=== PATIENT | female | born 2000 | race Caucasian/White ===

== ENCOUNTER 2025-05-31 11:03 | Outpatient (REF) | payer MEDICAID, SELFPAY ==
--- OUTSIDE RECORDS SUMMARY | 2025-05-31 09:00 | XMS_ITS | Encounter Summary ---
Author Organization [employer] [facility] Address [address] [place] [address] [address] [place] [address] Care Team Providers Care Wooling Machine Operator Name Role Phone Chika Villegas Primary Care Provider [phone] Reason for Referral * Consultation (Routine) - Authorized Specialty Diagnoses / Procedures Referred By Brijesh christy Referred To Contact Nutrition Diagnoses Underweight (BMI < 18.5) Chika Villegas FNP [address] [place] [address] Phone: tel: fax: Referral ID Status Reason Start Date Expiration Date Visits Requested Visits Authorized [id number] Authorized Specialty Services Required 05/31/2025 05/31/2026 1 1 * Consultation (Routine) - Closed Specialty Diagnoses / Procedures Referred By Brijesh christy Referred To Contact Optometry Diagnoses Blurry vision Chika Villegas FNP [address] [place] [address] Phone: tel: fax: Referral ID Status Reason Start Date Expiration Date V isits Requested Visits Authorized [id number] Closed Specialty Services Required 05/31/2025 05/31/2026 1 1 Encounter Details Date Type Department Care Team (Late st Contact Info) Description 05/31/2025 9:00 AM EDT Office Visit [facility] [address] [place] [address] Chika Villegas FNP [address] [place] [address] Well adult health check (Primary Dx); Underweight (BMI < 18.5); Blurry vision; Anxiety and depression Social History Tobacco Use Types Packs/Day Years Used Date Smoking Tobacco: Never Passive Smoke Exposure: Never Smokeless Tobacco: Never Tobacco Cessation:Counseling Given: Not Answered Depression Answer Date Recorded Patient Health Questionnaire-9 Score 4 05/31/2025 Patient Health Questionnaire-9 Score 4 05/31/2025 Last PHQ-9: Questionnaire Data Not on file 0 05/31/2025 Housing Stability Answer Date Recorded What is your housing situation today? I have cony germain 05/31/[address] you li ve. Do you have problems with any of the following? None of the above 05/31/2025 Food Insecurity Answer Date Recorded Within the past 12 months, y ou worried that your food would run out before you got money to buy more: Never True 05/31/2025 Within the past 12 months,th e food you bought just didn't last and you didn't have enough money to get more: Never True Transportation Answer Date Recorded In the past 12 months, has l ack of transportation kept you from medical appts, meetings, work or from getting things needed for daily living? No 05/31/2025 Utilities Answer Date Recorded In the past 12 months, has t he electric, gas, oil or water company threatened to shut off services in your home? No 05/31/2025 Depression Answer Date Recorded Patient Health Questionnaire-2 Score 0 05/31/2025 Internet Access Answer Date Recorded Internet Access Q1 Yes 05/31/2025 Internet Access Q2 Not on file 05/31/2025 Comments Unknown Sex and Gender Information Value Date Recorded Sex Assigned at Female 07/14/2022 10:16 AM EDT Legal Sex Female 10:16 AM EDT Gender Identity Female 07/14/2022 10:16 AM EDT Sexual Orientation Don't know 07/14/2022 10 :16 AM EDT documented as of this encounter Last Filed Vital Signs Vital Sign Reading Time Taken Comments Blood Pressure 128/80 05/31/2025 9:44 AM EDT Pulse 114 05/31/2025 9:44 AM EDT Temperature 36.9 C (98.4 F) 05/31/2025 9:44 AM EDT Respiratory Rate 18 05/31/2025 9:44 AM EDT Oxygen Saturation 98% 05/31/2025 9:44 AM EDT Inhaled Oxygen Concentration - - Weight 35.8 kg (79 lb) 05/31/2025 9:44 AM EDT Height 149.4 cm (4' 10.81 ) 05/31/2025 9:44 AM E DT Body Mass Index 16.06 05/31/2025 9:44 AM EDT documented in this encounter Functional Status * Over the past 2 weeks, how often have you been bothered by any of the following problems? Question Answer Date of Assessment Author Patient Health Questionnaire-2 Score 0 05/31/2025 10:29 AM EDT Ayde Mason [place] * Little interest or pleasure in doing things Answer Date of Assessment Author Not at all 05/31/2025 10:29 AM EDT Ayde Carroll [place], [place] * Feeling down, depressed, or hopeless Answer Date of Assessment Author Not at all 05/31/2025 10:29 AM EDT Ayde Carroll [place], [place] * Trouble falling or staying asleep, or sleeping too much Answer Date of Assessment Author Several days 05/31/2025 10:29 AM EDT Ayde Carroll [place], [place] * Feeling tired or having little energy Answer Date of Assessment Author Several days 05/31/2025 10:29 AM EDT Ayde Carroll [place], [place] * Poor appetite or overeating Answer Date of Assessment Author Several days 05/31/2025 10:29 AM EDT Ayde Carroll [place], [place] * Feeling bad about yourself - or that you are a failure or have let yourself or your family down Answer Date of Assessment Author Not at all 05/31/2025 10:29 AM EDT Ayde Carroll [place], [place] * Trouble concentrating on things, such as reading the newspaper or watching television Answer Date of Assessment Author Several days 05/31/2025 10:29 AM EDT Ayde Carroll [place], [place] * Moving or speaking so slowly that other people could have noticed? Or the opposite - being so fidgety or restless that you have been moving around a lot more than usual. Answer Date of Assessment Author Not at all 05/31/2025 10:29 AM EDT Ayde Carroll [place], [place] * Thoughts that you would be better off or hurting yourself in some way Answer Date of Assessment Author Not at all 05/31/2025 10:29 AM ELIFT Ayde Carroll [place], [place] * Patient Health Questionnaire-9 Score Answer Date of Assessment Author 4 05/31/2025 10:29 AM EDT Ayde Carroll [place], [place] * How difficult have these problems made it for you to do your work, take care of things at home, or get along with other people? Answer Date of Assessment Author Not difficult at all 05/31/2025 10:29 AM EDT Ayde Alvarenga [place] * Over the last 2 weeks, how often have you been bothered by any of the following problems? Question Answer Date of Assessment Author Feeling nervous, anxious, or on edge 1 05/31/2025 10:58 AM EDT Zack Sampson parul, CERTIFIED MASTER SAFE TECHNICIAN Not being able to stop or control worrying 0 05/31/2025 10:58 AM EDT Zack Sampson parul, CERTIFIED MASTER SAFE TECHNICIAN Worrying too much about different things 0 05/31/2025 10:58 AM EDT Zack Sampson parul, CERTIFIED MASTER SAFE TECHNICIAN Trouble relaxing 1 05/31/2025 10:58 AM EDT Huong Dixon, CERTIFIED MASTER SAFE TECHNICIAN Being so restless that it is hard to sit still 1 05/31/2025 10:58 AM EDT Zack Sampson parul, CERTIFIED MASTER SAFE TECHNICIAN Becoming easily annoyed or irritable 0 05/31/2025 10:58 AM EDT Germane Sampson parul, CERTIFIED MASTER SAFE TECHNICIAN Feeling afraid as if something awful might happen 1 05/31/2025 10:58 AM EDT German downey Huong, CERTIFIED MASTER SAFE TECHNICIAN JAKE-7 Total Score 4 05/31/2025 10:58 AM EDT Zack Huong, CERTIFIED MASTER SAFE TECHNICIAN documented as of this encounter Progress Notes * SHANELL Hobbs - 05/31/2025 9:00 AM EDT Subjective: Katherin Toledo is a 24 y.o. female who presents to the office for a new patient visit. Interim history: Anxiety - Reports feeling anxiety and nervousness - No history of medication for anxiety or depression - Previously saw a school therapist in high school - Patient appears nervous and uncomfortable with dart eyes Weight Loss - Noted significant weight loss over several years - Unable to gain weight despite attempts to eat more - Weight decreased from 80 something kg to 79 kg, then stabilized for a few years - Reports liking to eat, describes self as picky with food preferences (chicken, fries, salad) - Suspects low appetite may contribute to weight loss Vision Changes - Reports blurry vision and difficulty seeing from far Problem List[1] Surgical History[2] Family History[3] Social History Living situation: Lives wt parent and siblings in the house. Safety:No fire arms in the home. Working smoke and fire alarm. Reports home and environment safe Diet/exercise: Eats variety of food including fruits and vegetables. Thinks are food is not healthyreports being a picky eater No routine exercise Substance use: Denies Sexual preference: Male Sexual activity: None Dental: To schedule at [facility] Dental Vision: Reports blurry vision will refer to Last menstrual period: 04/18/2025 Pap smear: To be Scheduled Children; None Mental health: Denies SI, harming self or others Allergies[4] Current Medications[5] Health Maintenance Topic Date Due HIV Screening Never done Hepatitis B Vaccines (4 of 4 - 4-dose series) 02/27/1999 Family Planning (PISQ) Never done Hepatitis A Vaccines (2 of 2 - 2-dose series) 02/11/2016 Hepatitis C Screening Never done Pap Smear Never done DTaP/Tdap/Td Vaccines (7 - Td or Tdap) 10/10/2019 COVID-19 Vaccine ( season) Never done Influenza Vaccine (1) 05/15/2025 Depression Screening 05/31/2026 Tobacco Screening 05/31/2026 SDOH Screening 05/31/2026 Alcohol/Substance Use Screening 05/31/2026 Disability Screening 05/31/2026 Zoster Vaccines (1 of 2) 2048 RSV Patients and Patients Aged 60 years or older (1 - 1-dose 75+ series) 2073 HIB Vaccines Completed IPV Vaccines Completed Meningococcal Vaccine Completed HPV Vaccines Completed RSV under 20 months Aged Out Rotavirus Vaccines Aged Out Pneumococcal Vaccine: Pediatrics (0 to 5 Years) and At-Risk Patients (6 to 49) Years Aged Out Meningococcal B Vaccine Aged Out Review of Systems Constitutional: Negative for activity change, appetite change, fatigue and fever. HENT: Negative for congestion, ear discharge, ear pain, rhinorrhea and sore throat. Eyes: Negative for discharge, redness and itching. Respiratory: Negative for cough, shortness of breath and wheezing. Cardiovascular: Negative for chest pain. Gastrointestinal: Negative for abdominal pain, blood in stool, constipation, diarrhea, nausea and vomiting. Endocrine: Negative for polydipsia and polyuria. Genitourinary: Negative for decreased urine volume, difficulty urinating, dyspareunia, hematuria and menstrual problem. Musculoskeletal: Negative for arthralgias, gait problem and joint swelling. Skin: Negative for rash. Allergic/Immunologic: Negative for environmental allergies and food allergies. Neurological: Negative for dizziness, weakness and headaches. Hematological: Does not bruise/bleed easily. Psychiatric/Behavioral: Negative for behavioral problems and suicidal ideas. The patient is nervous/anxious. Vitals: 05/31/25 0944 BP: 128/80 BP Location: Left arm Patient Position: Sitting BP Cuff Size: Child Pulse: (!) 114 Resp: 18 Temp: 98.4 ??F (36.9 ??C) TempSrc: Oral SpO2: 98% Weight: 79 lb (35.8 kg) Height: 4' 10.81 (1.494 m) JAKE-7 Total Score: 4 (05/31/2025 10:58 AM) Patient Health Questionnaire-9 Score: 4 (05/31/2025 10:29 AM) Physical Exam Constitutional: General: She is not in acute distress. Appearance: Normal appearance. She is not ill-appearing. HENT: Head: Normocephalic and atraumatic. Right Ear: Tympanic membrane, ear canal and external ear normal. Left Ear: Tympanic membrane, ear canal and external ear normal. Nose: Nose normal. No congestion. Mouth/Throat: Mouth: Mucous membranes are moist. Pharynx: Oropharynx is clear. Eyes: Extraocular Movements: Extraocular movements intact. Pupils: Pupils are equal, round, and reactive to light. Cardiovascular: Rate and Rhythm: Normal rate and regular rhythm. Pulses: Normal pulses. Heart sounds: Normal heart sounds. No murmur heard. Pulmonary: Effort: Pulmonary effort is normal. Breath sounds: Normal breath sounds. No wheezing. Chest: Chest wall: No tenderness. Abdominal: General: Abdomen is flat. Bowel sounds are normal. Palpations: Abdomen is soft. Tenderness: There is no guarding or rebound. Musculoskeletal: General: Normal range of motion. Cervical back: Normal range of motion. Right lower leg: No edema. Left lower leg: No edema. Skin: General: Skin is warm and dry. Capillary Refill: Capillary refill takes less than 2 seconds. Findings: No bruising. Neurological: General: No focal deficit present. Mental Status: She is alert and oriented to person, place, and time. Cranial Nerves: No cranial nerve deficit. Sensory: No sensory deficit. Psychiatric: Mood and Affect: Mood normal. Behavior: Behavior normal. Thought Content: Thought content normal. Judgment: Judgment normal. Problem List Items Addressed This Visit Anxiety and depression - Anxiety reported by patient. Behavioral health evaluation recommended due to observed distress and nervousness. Patient in agreement - Patient was anxious about lab work because of hairy skin which made her uncomfortable and did nothave pleasant memories about this when in school. ? Body shaming - Referral to behavioral health for assessment. Behavioral health team had a phone visit during this visit Blurry vision - Referral to vision services for evaluation. Vision team to contact patient. Patient advised to expect the call Relevant Orders Referral to Optometry, Internal Underweight (BMI < 18.5) - Underweight with BMI of 16. Weight loss noted, currently stable. Possible genetic etiology discussed. - Referral to thermite bomb loader for dietary planning. Advised to increase caloric intake to achieve BMI between 18 and 25. - Further work after lab results comes in - Referral to Nutrition Services, Internal Relevant Orders TSH Referral to Nutrition Services, Internal Well adult health check - Primary Alert and cooperative , appears anxious and uncomfortable, poor eye contact. Good historian, and answering questions appropriately Plan Order comprehensive blood work to include thyroid function tests, complete blood count (CBC), sexually transmitted infection (STI) panel, lipid panel, and hemoglobin A1c to assess cholesterol levels and diabetes status. No family hx of colon CA, colonoscopy / stool based tests deferred to 45 yrs Diet and exercise review Hep B lab work to determine presence of antigens or antibody Lifestyle and behavioral health assessment Patient education on vaccination and importance getting annual vaccines Patient reluctant about blood work because of hairy skin. Explained the importance of the blood work and nobody is judging her here Relevant Orders Comprehensive Metabolic Panel Hepatitis B Core Antibody, Total Hepatitis B Surface Antibody, Qualitative Hepatitis B surface antigen, EIA Hepatitis C Antibody with Reflex to HCV, RNA, Quantitative, Real-Time PCR CBC auto differential HIV-1/2 Antigen and Antibodies, Fourth Generation, with Reflexes Lipid Panel, Standard Vitamin D, 25-Hydroxy, Total, Immunoassay Hemoglobin A1c Chlamydia/N. Gonorrhoeae, PCR, Urine This note was drafted using Ambient (AI) technology. The patient/patient's guardian has been informed and has consented to the use of this technology: Yes COMMERCIAL LENDING ASSISTANT Resident Attestation: I, Ela REECE , have reviewed the resident's note and agree with the assessment & plan of care as documented above. [1] Patient Active Problem List Diagnosis Anxiety and depression Blurry vision Underweight (BMI < 18.5) Well adult health check [2] History reviewed. No pertinent surgical history. [3] Family History Problem Relation Name Age of Onset No Known Problems Mother No Known Problems Father No Known Problems Sister No Known Problems Brother No Known Problems Daughter No Known Problems Son No Known Problems Maternal Grandmother No Known Problems Maternal Grandfather No Known Problems Paternal Grandmother No Known Problems Paternal Grandfather [4] No Known Allergies [5] No current outpatient medications on file. No current facility-administered medications for this visit. documented in this encounter Plan of Treatment Upcoming Encounters Date Type Department Care Team (Late st Contact Info) Description 06/22/2025 11:15 AM EDT Office Visit [facility] [address] [place] [id number] Chika Villegas FNP [address] [place] [address] 2025 9:30 AM EST Procedure Visit [facility] [address] [place] [id number] Joleen Horner CNM [address] [place] [address] Pending Results Name Type Priority Associated Diagnoses Date /Time Comprehensive Metabolic Panel Lab Routine Well adult health check 05/31/2025 11:28 AM EDT Lipid Panel, Standard Lab Routine Well adult health check 05/31/2025 11:28 AM EDT Scheduled Orders Name Type Priority Associated Diagnoses Orde r Schedule Hepatitis B Core Antibody, Total Lab Routine Well adult health check Expected: 05/31/2025 (Approximate), Expires: 05/30/2026 TSH Lab Routine Underweight (Bmi < 18.5) Expected: 05/31/2025 (Approximate), Expires: 05/30/2026 Hepatitis B Surface Antibody, Qualitative Lab Routine Well adult health check Expected: 05/31/2025 (Approximate), Expires: 05/30/2026 Hepatitis B surface antigen, EIA Lab Routine Well adult health check Expected: 05/31/2025 (Approximate), Expires: 05/30/2026 Hepatitis C Antibody with Reflex to HCV, RNA, Quantitative, Real-Time PCR Lab Routine Well adult health check Expected: 05/31/2025, Expires: 05/30/2026 HIV-1/2 Antigen and Antibodies, Fourth Generation, with Reflexes Lab Routine Well adult health check Expected: 05/31/2025 (Approximate), Expires: 05/30/2026 Vitamin D, 25-Hydroxy, Total, Immunoassay Lab Routine Well adult health check Expected: 05/31/2025 (Approximate), Expires: 05/30/2026 Chlamydia/N. Gonorrhoeae, PCR, Urine Lab Routine Well adult health check Ordered: 05/31/2025 Scheduled Referrals Name Type Priority Associated Diagnoses Orde r Schedule Referral to Optometry, Internal Outpatient Referral Routine Blurry vision Expected: 05/31/2025 (Approximate), Expires: 05/31/2026 Referral to Nutrition Services, Internal Outpatient Referral Routine Underweight (BMI < 18.5) Expected: 05/31/2025 (Approximate), Expires: 05/31/2026 documented as of this encounter Procedures Procedure Name Priority Date/Time Associated Diagnosis Comments CBC WITH AUTO DIFFERENTIAL Routine 05/31/2025 11:28 AM EDT Well adult health check HEMOGLOBIN A1C Routine 05/31/2025 11:28 AM EDT Well adult health check LIPID PANEL, STANDARD Routine 05/31/2025 11:28 AM EDT Well adult health check COMPREHENSIVE METABOLIC PANEL Routine 05/31/2025 11:28 AM EDT Well adult health check documented in this encounter Results * Hemoglobin A1c (05/31/2025 11:28 AM EDT) Hemoglobin A1c 5.0 <6.0 % [facility] Comment:Hemoglobin A1C Refer ence Range Adults: 4.8 - 6.0 % Non diabetic: < 6.0 % Goal: < 7.0 %Additional Action Suggested: > 8.0 %Note: Hemoglobin A1c results are invalid for patients with abnormal amounts of HbF. Blood transfusions may impact the HbA1c concentration in the patient sample. Estimated Average Glucose 97 mg/dL [facility] Comment:eAG = Estimated ave rage glucose which is %A1C expressed asaverage glucose, using the formula of the [id number] Glucose study (ADAG), Diabetes Care, Vol.31,#8,Apr. 2007 Blood Venous blood specimen / Unknown 05/31/2025 11:28 AM EDT 05/31/2025 1:16 PM EDT us Chika Villegas [facility] LAB BLOOD ORDERABLES Final Res ult [facility] [address] [place] [phone] * (ABNORMAL) CBC auto differential (05/31/2025 11:28 AM EDT) White Blood Count 8.4 4.8 - 10.8 X10*3/uL [facility] Red Blood Count 3.77(L) 4.20 - 5.50 X10*6/uL [facility] Hemoglobin 11.9(L) 12.0 - 16.0 g/dl [facility] Hematocrit 34.9(L) 37.0 - 47.0 % [facility] Mean Corpuscular Volume 92.6 80.0 - 98.0 fL [facility] Mean Corpuscular Hemoglobin 31.6 27.0 - 33.0 pg [facility] Mean Corpuscular HGB Conc 34.1 31.0 - 35.0 g/dl [facility] Red Cell Distribution Width 12.8 11.0 - 16.0 % [facility] Platelet Count 192 160 - 400 X10*3/uL [facility] Mean Platelet Volume 12.8(H) 9.4 - 12.3 fL [facility] Neutrophils Percent Auto 76.3(H) 45 - 73 % [facility] Imm Gran Pct Auto 0.4 0.0 - 0.4 % [facility] Lymphocytes Percent Auto 16.5(L) 20 - 40 % [facility] Monocytes Percent Auto 6.2 2 - 11 % [facility] Eosinophils Percent Auto 0.1 0 - 4 % [facility] Basophils Percent Auto 0.5 0 - 2 % [facility] NRBC Pct Auto 0.0 0.0 - 0.2 /100WBC [facility] Neutrophils Absolute Auto 6.4 2.0 - 8.3 x10*3/uL [facility] Imm Gran Abs Auto 0.03 0.00 - 0.03 X10*3/uL [facility] Lymphocytes Absolute Auto 1.4 1.2 - 4.9 X10*3/uL [facility] Monocytes Absolute Auto 0.5 0.1 - 1.2 X10*3/uL [facility] Eosinophils Absolute Auto 0.0 0.0 - 0.4 X10*3/uL [facility] Basophils Absolute Auto 0.0 0.0 - 0.2 X10*3/uL [facility] NRBC Abs Auto 0.000 0.0 - 0.012 X10*3/uL [facility] Blood Venous blood specimen / Unknown 05/31/2025 11:28 AM EDT 05/31/2025 1:16 PM EDT us Chika Bakari PRODUCTION CONTROL PLANNER LAB BLOOD ORDERABLES Final Res ult [facility] [address] [place] [phone] [phone] documented in this encounter Visit Diagnoses Diagnosis Well adult health check- Primary Unspecified general medical examination Underweight (BMI < 18.5) Blurry vision Other specified visual disturbances Anxiety and depression documented in this encounter Additional Health Concerns Assessment Noted Time PHQ-9 Depression Total Score: 4 05/31/20 25 10:29 AM EDT documented as of this encounter Care Teams Wooling Machine Operator Relationship Specialty Start Date End Date Chika Villegas FNP [address] [place] [id number] PCP - General Family Medicine 05/31/25 documented as of this encounter
[2025-05-31 13:22] LABS: MANUAL DIFF FLAG NO
[2025-05-31 13:41] LABS: Hematocrit 34.9 % (37.0-47.0); Hemoglobin 11.9 g/dl (12.0-16.0); Imm Gran Abs Auto 0.03 X10*3/uL (0.00-0.03); Imm Gran Pct Auto 0.4 % (0.0-0.4); Lymphocytes Absolute Auto 1.4 X10*3/uL (1.2-4.9); Mean Corpuscular HGB Conc 34.1 g/dl (31.0-35.0); Mean Corpuscular Hemoglobin 31.6 pg (27.0-33.0); Mean Corpuscular Volume 92.6 fL (80.0-98.0); NRBC Abs Auto 0.000 X10*3/uL (0.0-0.012); NRBC Pct Auto 0.0 /100WBC (0.0-0.2); Platelet Count 192 X10*3/uL (160-400); Red Blood Count 3.77 X10*6/uL (4.20-5.50); White Blood Count 8.4 X10*3/uL (4.8-10.8)
[2025-05-31 13:52] LABS: Alanine Aminotransferase 15 U/L (0-31); Albumin Level 4.9 g/dL (3.5-5.0); Alkaline Phosphatase 62 U/L (39-117); Anion Gap 12 (12-20); Aspartate Amino Transferase 19 U/L (5-31); Blood Urea Nitrogen 6 mg/dL (9-16); Calcium 9.5 mg/dL (8.4-10.2); Carbon Dioxide 24 mmol/L (22-29); Chloride 108 mmol/L (96-108); Cholesterol 160 mg/dL (<200); Estimated Glomerular Filt Rate > 60; HDL Cholesterol 54 mg/dL (>40); Potassium 3.5 mmol/L (3.3-5.1); Sodium 140 mmol/L (135-145); Total Protein 7.8 g/dL (6.5-8.0); Triglycerides 49 mg/dL (<150)
[2025-05-31 14:05] LABS: Hemoglobin A1C 107.8357 umol/L; Total Hemoglobin (HGBA1C) 3409.2022 umol/L
--- OUTSIDE RECORDS SUMMARY | 2025-05-31 14:13 | XMS_ITS | Encounter Summary ---
Author Organization [email or web address] Address [address] [facility] 7[address] [place] [address] Care Team Providers Care Blogs Manager Name Role Phone Chika Villegas [facility] Primary Care Provider [phone] Encounter Details Date Type Department Care Team (Latest Contact Info) Description 05/31/2025 Travel Social History Tobacco Use Types Packs/Day Years Used Date Smoking Tobacco: Never Passive Smoke Exposure: Never Smokeless Tobacco: Never Depression Answer Date Recorded Patient Health Questionnaire-9 Score 4 05/31/2025 Patient Health Questionnaire-9 Score 4 05/31/2025 Last PHQ-9: Questionnaire Data Not on file 0 05/31/2025 Housing Stability Answer Date Recorded What is your housing situation today? I have conyanneliese germain 05/31/[address] you [...] AM EDT documented as of this encounter Functional Status * Over the [...] Assessment Author Several days 05/31/2025 10:29 AM Ayde Santana [place], [place] * Feeling bad about yourself - or that you are a failure or have let yourself or your family down Answer Date of Assessment Author Not at all 05/31/2025 10:29 AM EDT Ayde Carroll [place], [place] * Trouble concentrating on things, such as reading the newspaper or watching television Answer Date of Assessment Author Several days 05/31/2025 10:29 AM EDAyde Camargo [place], [place] * Moving or speaking so slowly that other people could have noticed? Or the opposite - being so fidgety or restless that you have been moving around a lot more than usual. Answer Date of Assessment Author Not at all 05/31/2025 10:29 AM EDAyde Camargo [place], [place] * Thoughts that you would be better off or hurting yourself in some way Answer Date of Assessment Author Not at all 05/31/2025 10:29 AM EDT Ayde Carroll [place], [place] * Patient Health [...] on edge 1 05/31/2025 10:58 AM EDT Sampson Dixon [employer] Not being able to stop or control worrying 0 05/31/2025 10:58 AM EDT Sampson Dixon LICSW Worrying too much about different things 0 05/31/2025 10:58 AM EDT Sampson Dixon [employer] Trouble relaxing 1 05/31/2025 10:58 AM EDT Huong Dixon LICSW Being so restless that it is hard to sit still 1 05/31/2025 10:58 AM EDT Sampson Dixon [employer] Becoming easily annoyed or irritable 0 05/31/2025 10:58 AM EDT Sampson Dixon [employer] Feeling afraid as if something awful might happen 1 05/31/2025 10:58 AM EDT Huong Noriega LICSW JAKE-7 Total Score 4 05/31/2025 10:58 AM EDT Huong Dixon LICSW documented as of this encounter Plan of Treatment Upcoming Encounters Date Type Department Care Team (Late st Contact Info) Description 06/22/2025 11:15 AM EDT Office Visit [facility] MEDICINE [address] [place] [address] Chika Villegas FNP [address] [place], [place] [phone] 9:30 AM EST Procedure Visit [facility] MEDICINE [address] [facility], [place] [phone] Joleen Horner CNM [address] [place], [place] [phone] documented as of this encounter Visit Diagnoses Not on filedocumented in this encounter Additional Health Concerns Assessment Noted Time PHQ-9 Depression Total Score: 4 05/31/20 10:29 AM EDT documented as of this encounter Care Teams Blogs Manager Relationship Specialty Start Date End Date Chika Villegas FNP [address] [place], [place] [phone] PCP - General Family Medicine 05/31/25 documented as of this encounter
--- OUTSIDE RECORDS SUMMARY | 2025-05-31 14:13 | XMS_ITS | Clinical Summary ---
Author Organization [employer] Address [address] [facility] [address] [place] [address] Care Team Providers Care Disk Grinder Name Role Phone Chika Villegas Primary Care Provider [phone] Allergies No known active allergies Medications * This document contains information received from the source organization and may not represent a complete record from that organization. No known medications Active Problems Problem Noted Date Diagnosed Date Blurry vision 05/31/2025 Underweight (BMI < 18.5) 05/31/2025 Well adult health check 05/31/2025 Anxiety and depression 11/30/2015 Encounters * This document contains information received from the source organization and may not represent a complete record from that organization. Date Type Department Care Team Description 05/31/2025 9:00 AM EDT Office Visit [address] [address] Chika Villegas FNP Well adult health check (Primary Dx); Underweight (BMI < 18.5); Blurry vision; Anxiety and depression 05/31/2025 Travel 05/30/[address] [address] Warren Dodson [place] CHART PREP 05/24/2025 Patient Outreach [address] [address] Ela Diaz NP Pre-visit Planning ((Unable to reach for PVP screening, LVM) to be completed in office ) 04/17/[address] [address] Charles Wylie MD [facility] - New Patient Assistance 04/14/[address] [address] Kiah Christine MD No Show 04/13/2025 Telephone [facility] MEDICINE [address] [place] [address] Kiah Christine MD Chart Prep 04/07/2025 Patient Outreach [facility] MED & PEDS [address] [place] [address] Kiah Christine MD Pre-visit Planning ([facility] unable to reach, disconnected) from Last 3 Months Family History Medical History Relation Name Comments No Known Problems Brother No Known Problems Daughter No Known Problems Father No Known Problems Maternal Grandfather No Known Problems Maternal Grandmother No Known Problems Mother No Known Problems Paternal Grandfather No Known Problems Paternal Grandmother No Known Problems Sister No Known Problems Son Relation Name Status Comments Brother Daughter Father Maternal Grandfather Maternal Grandmother Mother Paternal Grandfather Paternal Grandmother Sister Son Social History Tobacco Use Types Packs/Day Years [...] Don't know 07/14/2022 10 :16 AM EDT Last Filed Vital Signs Vital Sign Reading [...] Mass Index 16.06 05/31/2025 9:44 AM EDT Plan of Treatment Upcoming Encounters Date Type Department Care Team (Late st Contact Info) Description 06/22/2025 11:15 AM EDT Office Visit [facility] MEDICINE [address] [place] [phone] Chika Villegas, SHANELL [address] [place] [address] 2025 9:30 AM EST Procedure Visit [address] [address] Joleen Horner, GASTON [address] [place] [address] Health Maintenance Due Date Last Done Comments HIV Screening 1998 Hepatitis B Vaccines (4 of 4 - 4-dose series) 02/27/1999 02/12/1999, 01/02/1999, 1998 Family Planning (PISQ) 2013 Hepatitis A Vaccines (2 of 2 - 2-dose series) 02/11/2016 08/13/2015 Hepatitis C Screening 2016 Pap Smear 2019 DTaP/Tdap/Td Vaccines (7 - Td or Tdap) 10/10/2019 10/10/2009, 02/17/2003, 12/05/1999, Additional history exists COVID-19 Vaccine ( - season) 2025 Influenza Vaccine (#1) 2025 08/13/2015 Alcohol/Substance Use Screening 05/31/2026 05/31/2025 Depression Screening 05/31/2026 05/31/2025, 05/31/20 25 Disability Screening 05/31/2026 05/31/2025 SDOH Screening 05/31/2026 05/31/2025 Tobacco Screening 05/31/2026 05/31/2025 Zoster Vaccines (1 of 2) 2048 RSV Patients and Patients Aged 60 years or older (1 - 1-dose 75+ series) 2073 HIB Vaccines Completed 12/05/1999, 09/1998, 01/02/1999, Additional history exists IPV Vaccines Completed 02/17/2003, 09/1998, 01/02/1999, Additional history exists HPV Vaccines Completed 08/13/2015, 02/12, 10/10/2009 Meningococcal Vaccine Completed 08/13/2015, 010 Meningococcal B Vaccine Aged Out No l onger eligible based on patient's age to complete this topic Pneumococcal Vaccine: Pediatrics (0 to 5 Years) and At-Risk Patients (6 to 49) Years Aged Out No longer eligible based on patient's age to complete this topic RSV under 20 months Aged Out No longe r eligible based on patient's age to complete this topic Rotavirus Vaccines Aged Out No longer eligible based on patient's age to complete this topic Procedures Procedure Name Priority Date/Time Associated Diagnosis Comments HEMOGLOBIN A1C Routine 05/31/2025 11:28 AM EDT Well adult health check LIPID PANEL, STANDARD Routine 05/31/2025 11:28 AM EDT Well adult health check CBC WITH AUTO DIFFERENTIAL Routine 05/31/2025 11:28 AM EDT Well adult health check COMPREHENSIVE METABOLIC PANEL Routine 05/31/2025 11:28 AM EDT Well adult health check from Last 3 Months Results * (ABNORMAL) CBC auto differential (05/31/2025 11:28 AM EDT) White Blood Count 8.4 4.8 - 10.8 X10*3/uL [facility] Red Blood Count 3.77(L) 4.20 - 5.50 X10*6/uL [facility] Hemoglobin 11.9(L) 12.0 - 16.0 g/dl [facility] Hematocrit 34.9(L) 37.0 - 47.0 % [facility] Mean Corpuscular Volume 92.6 80.0 - 98.0 fL [facility] Mean Corpuscular Hemoglobin 31.6 27.0 - 33.0 pg [facility] Mean Corpuscular HGB Conc 34.1 31.0 - 35.0 g/dl [facility] Red Cell Distribution Width 12.8 11.0 - 16.0 % [facility] Platelet Count 192 160 - 400 X10*3/uL [facility] Mean Platelet Volume 12.8(H) 9.4 - 12.3 fL [facility] Neutrophils Percent Auto 76.3(H) 45 - 73 % [facility] Imm Gran Pct Auto 0.4 0.0 - 0.4 % [facility] Lymphocytes Percent Auto 16.5(L) 20 - 40 % [facility] Monocytes Percent Auto 6.2 2 - 11 % [facility] Eosinophils Percent Auto 0.1 0 - 4 % [facility] Basophils Percent Auto 0.5 0 - 2 % [facility] NRBC Pct Auto 0.0 0.0 - 0.2 /100WBC [facility] Neutrophils Absolute Auto 6.4 2.0 - 8.3 x10*3/uL [facility] Imm Gran Abs Auto 0.03 0.00 - 0.03 X10*3/uL [facility] Lymphocytes Absolute Auto 1.4 1.2 - 4.9 X10*3/uL [facility] Monocytes Absolute Auto 0.5 0.1 - 1.2 X10*3/uL [facility] Eosinophils Absolute Auto 0.0 0.0 - 0.4 X10*3/uL [facility] Basophils Absolute Auto 0.0 0.0 - 0.2 X10*3/uL [facility] NRBC Abs Auto 0.000 0.0 - 0.012 X10*3/uL [facility] Blood Venous blood specimen / Unknown 05/31/2025 11:28 AM EDT 05/31/2025 1:16 PM EDT [employer] [facility] LAB BLOOD ORDERABLES Final Res ult Performing Organization Address [facility]/ZIP Co de Phone Number [facility] [address] [place] [phone] * Hemoglobin A1c (05/31/2025 11:28 AM EDT) Hemoglobin A1c 5.0 <6.0 % [facility] Comment:Hemoglobin A1C Refer ence Range Adults: 4.8 - 6.0 % Non diabetic: < 6.0 % Goal: < 7.0 %Additional Action Suggested: > 8.0 %Note: Hemoglobin A1c results are invalid for patients with abnormal amounts of HbF. Blood transfusions may impact the HbA1c concentration in the patient sample. Estimated Average Glucose 97 mg/dL [facility] Comment:eAG = Estimated ave rage glucose which is %A1C expressed asaverage glucose, using the formula of the K3X-AivglltDpbroud Glucose study (ADAG), Diabetes Care, Vol.31,#8,Apr. 2007 Blood Venous blood specimen / Unknown 05/31/2025 11:28 AM EDT 05/31/2025 1:16 PM EDT [employer] NURSE INFORMATICIST LAB BLOOD ORDERABLES Final Res ult Performing Organization Address [facility]/ZIP Co de Phone Number [facility] [address] [place] [phone] from Last [address] [place] [place] [address] C3 Care Teams Disk Grinder Relationship Specialty Start Date End Date Chika Villegas FNP [address] [place] [phone] PCP - General Family Medicine 05/31/25
--- OUTSIDE RECORDS SUMMARY | 2025-05-31 14:13 | XMS_ITS | Encounter Summary ---
Author Organization [employer] Address [address] [facility] [address] [place] [address] Care Team Providers Care Manager Laundry Name Role Phone Unavailable Primary Care Provider Unavailabl e Reason for Visit * Reason Onset Date Comments CHART PREP 05/30/2025 Encounter Details Date Type Department Care Team (Late st Contact Info) Description 05/30/2025 Telephone [facility] MEDICINE [address] [place], [place] [phone] Warren Dodson MA CHART PREP Social History Tobacco Use Types Packs/Day Years Used Date Smoking Tobacco: Never Assessed Depression Answer Date Recorded Patient Health Questionnaire-9 [...] AM EDT documented as of this encounter Miscellaneous Notes * Telephone Encounter - Warren Dodson MA - 05/30/2025 2:21 PM EDT Chart Prep Labs: not applicable Images: not applicable Referrals: not applicable Vaccines due: Covid, Flu, Hep B, and Hep A Screenings: not applicable Overdue care gaps: SBIRT, SDOH, PHQ-9, JAKE-7, Oral health screening, M-CHAT R, and Tobacco documented in this encounter Plan of Treatment Upcoming Encounters Date Type Department Care Team (Late st Contact Info) Description 06/22/2025 11:15 AM EDT Office Visit [facility] MEDICINE [address] [place] [phone] Chika Villegas FNP [address] [place] [address] 2025 9:30 AM EST Procedure Visit [facility] MEDICINE [address] [place] [phone] Joleen Horner CNM [address] [place] [address] documented as of this encounter Visit Diagnoses Not on filedocumented in this encounter
[2025-05-31 14:15] LABS: Thyroid Stimulating Hormone 0.98 uIU/mL (0.32-4.0)
[2025-05-31 15:21] LABS: CT PCR Urine NOT DETECTED (Not Detect.); NG PCR Urine NOT DETECTED (Not Detect.)
[2025-06-01 05:33] LABS: HBS Num1 0.17 mIU/mL (0-7.99); HBc Num1 0.06 S/CO (0.00-0.79); HBsAGNum1 0.50 S/CO (0.00-0.99); HIV Num 1 0.05 S/CO (0.00-0.99); Hepatitis B Surface Antigen Negative (Negative); ~HepC Num1 0.08 S/CO (0.00-0.79); ~Hepatitis B Surface Antibody NONREACTIVE (Nonreactive); ~Hepatitis C Antibody Nonreactive (Nonreactive)
== END 2025-05-31 11:04 | disposition home or self-care (01) ==
LOC: HO.HHCL 11:03
PROVIDERS: PCP Nurse Practitioner Family; Visit Provider Nurse Practitioner Family
DX: Z00.00 Encounter for general adult medical examination without abnormal findings (principal); R63.6 Underweight; Z68.1 Body mass index [BMI] 19.9 or less, adult; Z11.9 Encounter for screening for infectious and parasitic diseases, unspecified; Z11.4 Encounter for screening for human immunodeficiency virus [HIV]; Z11.3 Encounter for screening for infections with a predominantly sexual mode of transmission; Z11.8 Encounter for screening for other infectious and parasitic diseases
CPT/HCPCS: 80053; 80061; 82306; 83036; 84443; 85025; 86704; 86706; 86803; 87340; 87389; 87491; 87591

== ENCOUNTER 2025-06-22 11:50 | Outpatient (REF) | payer MEDICAID, SELFPAY ==
[2025-06-22 17:12] LABS: Ferritin 11 ng/mL (10-122)
[2025-06-22 17:24] LABS: Folate 10.8 ng/mL (> or = 4.0); Vitamin B12 223 pg/mL (200-900)
== END 2025-06-22 11:51 | disposition home or self-care (01) ==
LOC: HO.HHCL 11:50
PROVIDERS: PCP Nurse Practitioner Family; Visit Provider Nurse Practitioner Family
DX: D64.9 Anemia, unspecified (principal)
CPT/HCPCS: 36415; 82607; 82728; 82746; 85652; 86140